=== PATIENT | male | born 1970 | race Caucasian/White ===

== ENCOUNTER 2018-10-02 06:18 | Emergency (ER) | payer SELFPAY ==
--- OUTSIDE RECORDS SUMMARY | 2018-10-02 06:24 | XMS REPORT | Clinical Summary ---
:1970 Author Organization [facility] Address [address] [place] [address] Care Team Providers Name Role Phone Bc Carbajal MD Primary Care Provider Allergies No Known Allergies Medications Medication Sig Dispensed Refills Start Date End Date Status ibuprofen (ADVIL,MOTRIN) Take 1 tablet 15 tablet 0 09/13/2018 800 MG tablet (800 mg total) 9 by mouth every 8 (eight) hours as needed for mild pain or moderate pain for up to 5 days. cyclobenzaprine Take 1 tablet (5 12 tablet 0 09/13/2018 (FLEXERIL) 5 mg tablet mg total) by 9 mouth 3 (three) times a day as needed for muscle spasms for up to 7 days. methylPREDNISolone follow package 21 tablet 0 09/13/2018 (MEDROL DOSEPAK) 4 mg directions 9 tablet Active Problems Not on file Encounters Date Type Specialty Care Team Description 09/13/2018 Emergency Emergency Medicine Ray, Wily Irizarry, Lumbar radiculopathy PA (Primary Dx) Karol Bauer MD after 10/01/2017 Social History Tobacco Use Types Packs/Day Years Used Date Former Smoker Smokeless Tobacco: Never Used Comments: social Alcohol Use Drinks/Week oz/Week Comments Yes social Alcohol Habits Answer Date Recorded How often do you have a drink containing alcohol? Never 09/13/2018 How many drinks containing alcohol do you have on a typical Not asked day when you are drinking? How often do you have six or more drinks on one occasion? Not asked Sex Assigned at Date Recorded Not on file Job Start Date Occupation Industry Not on file Not on file Not on file Travel History Travel Start Travel End No recent travel history available. Last Filed Vital Signs Vital Sign Reading Time Taken Blood Pressure 128/91 09/13/2018 9:32 PM CDT Pulse 85 09/13/2018 9:32 PM CDT Temperature 36.7 C (98 F) 09/13/2018 9:59 PM CDT Respiratory Rate 16 09/13/2018 9:32 PM CDT Oxygen Saturation 97% 09/13/2018 9:32 PM CDT Inhaled Oxygen Concentration - - Weight - - Height - - Body Mass Index - - Plan of Treatment Health Maintenance Due Date Last Done Comments INFLUENZA VACCINE 01/03/2019 Procedures Procedure Name Priority Date/Time Associated Diagnosis Comments XR LUMBAR SPINE 2 STAT 09/13/2018 7:57 PM Results for this OR 3 VW CDT procedure are in the results section. after 10/01/2017 Results XR Lumbar Spine 2 Or 3 Vw (09/13/2018 7:57 PM CDT) Narrative Performed At EXAMINATION: XR LUMBAR SPINE 2 OR 3 VW [facility] CLINICAL HISTORY: Low back pain with radiculopathy to the right COMPARISON:None IMPRESSION: 2 views lumbar spine are interpreted. There are 5 lumbar type vertebrae. There is lumbar levoscoliosis with a Watt angle of 16 degrees. Mild rotation is present. Vertebral heights are preserved. No fracture or aggressive bone lesion is seen. Mild disc degenerative changes noted at L4-5. There is mild grade 1 anterolisthesis of L4 relative L5. [facility]-[id number] Procedure Note Interface, Radiology Results - 09/13/2018 8:14 PM CDT EXAMINATION: XR LUMBAR SPINE 2 OR 3 VW CLINICAL HISTORY: Low back pain with radiculopathy to the right COMPARISON: None IMPRESSION: 2 views lumbar spine are interpreted. There are 5 lumbar type vertebrae. There is lumbar levoscoliosis with a Watt angle of 16 degrees. Mild rotation is present. Vertebral heights are preserved. No fracture or aggressive bone lesion is seen. Mild disc degenerative changes noted at L4-5. There is mild grade 1 anterolisthesis of L4 relative L5. [facility]-[id number] Performing Organization Address City/State/Zipcode Phone Number [facility] [address] [place] [address] after 10/01/2017 Advance Directives Patient has advance care planning documents on file. For more information, please contact:Hayes [address] [place] [address]
--- OUTSIDE RECORDS SUMMARY | 2018-10-02 06:24 | XMS REPORT ---
:1970 Author Organization [facility] Address [address] [place] [address] Dr. Logan [address] [place] [id number] Care Team Providers Name Role Phone Unavailable Unavailable Unavailable Problems This patient has no known problems. Allergies, Adverse Reactions, Alerts This patient has no known allergies or adverse reactions. Medications This patient has no known medications.
[2018-10-02 07:01] LABS: Absolute Lymphocytes (CBC) 2.4 K/uL (0.7-4.9); Absolute Monocytes 0.8 K/uL (0.1-1.3); Absolute Neutrophil 6.5 K/uL (1.8-8.0); Basophils % 0.7 % (0-1.3); Eosinophils % 3.2 % (0-4.4); Hematocrit 51.7 % (39.6-49.0); Lymphocytes % 23.9 % (15.3-44.8); MPV 7.5 fL (7.6-11.3); Monocytes % 8.3 % (3.3-12.3); RBC Red Blood Cell Count 5.55 M/uL (4.33-5.43)
[2018-10-02] MEDS ORDERED: NA CHLORIDE 0.9% 1,000 ML ONE (07:09)
[2018-10-02 07:15] LABS: Albumin 3.8 g/dL (3.4-5.0); Bilirubin Direct 0.1 mg/dL (0-0.2); Bilirubin Total 0.8 mg/dL (0.2-1.0)
--- NOTE | 2018-10-02 08:12 | RAD REPORT ---
EXAM DESCRIPTION: CT - Chest Abdomen Pelvis W Cont - 10/02/2018 7:47 am CLINICAL HISTORY: Chest pain, abdominal pain, dysuria, history of back pain with right lower extremi ty radiculopathy COMPARISON: CT imaging March 2017 TECHNIQUE: Following dynamic enhancement using 100 milliliters nonionic IV contrast, axial imaging o f the chest, abdomen and pelvis was performed. Biphasic technique was utilized through the abdomen. Oral contrast was administered. All CT scans are performed using dose optimization technique as appropriate and may include automated exposure control or mA/KV adjustment according to patient size. FINDINGS: Lungs are clear of mass and infiltrate. Calcified granuloma in the right lung field. No pl eural effusion, pleural thickening or pneumothorax. No significant aortic or pulmonary arterial tree finding. Mediastinal and hilar regions show no mass or abnormal lymphadenopathy. No chest wall mass o r axillary lymphadenopathy. No pericardial thickening or effusion. Scoliosis of the spine is noted wi thout an acute thoracic bony finding. The liver, spleen and pancreas show no suspicious findings. Gallbladder is contracted. No biliary gamaliel e dilatation. Gallstones can be occult on CT imaging. Symmetric renal function is seen with no mass o r hydronephrosis. No adrenal abnormalities. Urinary bladder is contracted around a Garg catheter. No dilated bowel loops or focal bowel wall thickening. No acute GI findings seen. Appendix is normal. Advanced lower lumbar degenerative changes are present. No acute bony finding. Central canal detail i s inherently limited. No significant vascular findings. IMPRESSION: CT chest imaging shows no acute or suspicious finding. CT abdomen and pelvis imaging shows no acute or suspicious finding. Prominent lower lumbar degenerative changes are present. Central canal is inherently limited in asses sment on CT imaging.
--- NOTE | 2018-10-02 09:07 | RAD REPORT ---
EXAM DESCRIPTION: MRI - Lumbar Spine Wo Con - 10/02/2018 8:39 am CLINICAL HISTORY: Right lower extremity radiculopathy COMPARISON: CT imaging same date TECHNIQUE: Sagittal T1-weighted, T2-weighted and T2-STIR weighted sequences were obtained. Axial T1 -weighted and heavily T2-weighted sequenceswere obtained through the lumbar disc levels. FINDINGS: Lumbar bodies are normal in height. Alignment is normal except for mild anterior subluxati on of L4 relative to L5. This is secondary to facet degenerative change. No pars defects identified. Small hemangioma is present in the T12 body. There is active degenerative marrow edema in the midlin e and left-side L5 and S1 bodies abutting the L5-S1 disc space. No aggressive marrow edema or marrow replacing process. Conus is normal with no clumping or thickening of the cauda equina. T12-L1 level: No significant findings. L1-2 level: No significant findings. L2-3 level: Disc is desiccated with slight loss in disc height. Minimal disc bulge is present. No can al or foramen stenosis. Minimal facet degenerative change. L3-4 level: Disc is desiccated with a minimal loss in disc height. Minimal disc bulge in the right fo ramen without foraminal stenosis. No significant central canal finding. Prominent left foraminal disc bulge results in a mild foraminal stenosis. Perineural fat still surrounds the exiting nerve root. F acet degenerative change and ligamentous thickening are mild. L4-5 level: Disc is thinned and desiccated in addition to the L4 subluxation abnormality. There is a pseudo bulge of disc material across the central canal and into each exit foramen. Facet degenerative changes are present with minimal ligamentous thickening. Patient has very significant right foramina l stenosis with effacement of the perineural fat. No left foraminal stenosis. Central canal is 11 mm in the midline. L5-S1 level: Disc is thinned and desiccated with minimal disc bulge. Mild bilateral foraminal encroac hment changes are present with perineural fat still present. No central spinal stenosis. IMPRESSION: Severe right L4-5 foraminal stenosis from protruding disc material and L4 subluxation. T his is likely the level responsible for the patient's right lower extremity radiculopathy. Degenerative changes are present at the lower for disc levels as detailed. No other level of central spinal stenosis or significant foraminal encroachment. Canal is borderline stenotic at L4-5. Active marrow degenerative change in the midline and left-side L5 and S1 bodies abutting the disc anish bates.
[2018-10-02] MEDS ORDERED: DEXAMETHASONE 10 MG/ML VIAL ONE (09:14)
[2018-10-02 09:19] LABS: Urine Bacteria NONE SEEN /HPF (NONE SEEN); Urine Culture Reflex Order NOT NEEDED; Urine RBC <5 /HPF (NONE SEEN)
[2018-10-02 09:19] LABS: Urine Blood NEGATIVE (NEG); Urine Glucose NEGATIVE (NEG); Urine Protein NEGATIVE (NEG); Urine Specific Gravity 1.015 (1.005-1.030); Urine pH 8.5 (5.0-7.0)
--- NOTE | 2018-10-02 09:26 | EDPHYS ---
Physician Documentation [facility] Name: Mike Leger Age: 47 yrs Sex: Male : 1970 Arrival Date: 10/02/2018 Time: 06:23 Bed 17 Private MD: ED Physician Sunday Romero HPI: 10/02 07:00 This 47 yrs old Male presents to ER via Wheelchair with complaints of snw Constipation, Urinary Retention, Severe pain, Leg Pain. 07:00 Onset: The symptoms/episode began/occurred gradually, 2 week(s) ago, and became snw persistent. Associated signs and symptoms: Pertinent positives: urinary retention, constipation. Modifying factors: The patient symptoms are alleviated by nothing. The patient has experienced similar episodes in the past, multiple times, chronically. pt has been Doctor and hospital hopping x 2 weeks, + pain med registry, drug seeking behavior, on [place] daily x several years. 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 - Social history:: Smoking status: Patient uses tobacco products, 2 packs a week. - Ebola Screening: : No symptoms or risks identified at this time. ROS: 06:58 Eyes: Negative for injury, pain, redness, and discharge, ENT: Negative for injury, snw pain, and discharge, Neck: Negative for injury, pain, and swelling, Cardiovascular: Negative for chest pain, palpitations, and edema, Respiratory: Negative for shortness of breath, cough, wheezing, and pleuritic chest pain, Abdomen/GI: Negative for abdominal pain, nausea, vomiting, diarrhea, and constipation. 06:58 Skin: Negative for injury, rash, and discoloration. 06:58 Abdomen/GI: Negative for abdominal pain, nausea, vomiting, diarrhea, positive for constipation, Back: Negative for injury and pain. 06:58 Constitutional: Positive for body aches, malaise, poor PO intake. 06:58 Back: Positive for decreased range of motion, pain at rest, pain with movement, of the lumbar area, sacrum, left low back and right low back. 06:58 : Positive for urinary symptoms, difficulty urinating. 06:58 MS/extremity: Positive for decreased range of motion, pain. 06:58 Neuro: Positive for weakness. Exam: 06:47 Head/Face: Normocephalic, atraumatic. Eyes: Pupils equal round and reactive to light, snw extra-ocular motions intact. Lids and lashes normal. Conjunctiva and sclera are non-icteric and not injected. Cornea within normal limits. Periorbital areas with no swelling, redness, or edema. 06:47 Neck: Trachea midline, no thyromegaly or masses palpated, and no cervical lymphadenopathy. Supple, full range of motion without nuchal rigidity, or vertebral point tenderness. No Meningismus. Chest/axilla: Normal chest wall appearance and motion. Nontender with no deformity. No lesions are appreciated. Cardiovascular: Regular rate and rhythm with a normal S1 and S2. No gallops, murmurs, or rubs. Normal PMI, no JVD. No pulse deficits. Respiratory: Lungs have equal breath sounds bilaterally, clear to auscultation and percussion. No rales, rhonchi or wheezes noted. No increased work of breathing, no retractions or nasal flaring. Abdomen/GI: Soft, non-tender, with normal bowel sounds. No distension or tympany. No guarding or rebound. No evidence of tenderness throughout. Back: No spinal tenderness. No costovertebral tenderness. Full range of motion. 06:47 Constitutional: The patient appears alert, anxious, restless, uncomfortable, unkempt. 06:47 ENT: Mouth: Oral mucosa: dry, Voice: is normal. 06:47 Skin: Appearance: Temperature: normal temperature, Moisture: dry. 06:47 Neuro: Orientation: is normal, Mentation: is normal, Motor: moving all extremities, histrionic, Sensation: no obvious gross deficits, seizure activity, is not displayed by the patient. 06:47 Psych: Behavior/mood is inappropriate for age, histrionic. Vital Signs: 06:30 BP 127 / 83; Pulse 84; Resp 20 S; Temp 98.1(O); Pulse Ox 100% on R/A; Weight 83.91 kg cc3 (R); Height 5 ft. 10 in. (177.80 cm) (R); Pain 8/10; 07:30 BP 122 / 79; Pulse 81; Resp 16; Pulse Ox 100% ; bp 09:00 BP 147 / 67; Pulse 77; Resp 16; Pulse Ox 100% ; bp 06:30 Body Mass Index 26.54 (83.91 kg, 177.80 cm) cc3 MDM: 06:36 Patient medically screened. snw 08:00 Data reviewed: vital signs, nurses notes. Data interpreted: Pulse oximetry: on room air snw is 100 %. Interpretation: normal. Counseling: I had a detailed discussion with the patient and/or guardian regarding: the historical points, exam findings, and any diagnostic results supporting the discharge/admit diagnosis, lab results. 10/02 06:36 Order name: Urine Microscopic Only; Complete Time: 09:20 snw 10/02 06:36 Order name: Basic Metabolic Panel; Complete Time: 07:16 snw 10/02 09:20 Interpretation: GFR 70. snw 10/02 06:36 Order name: CT Chest, Abdomen, Pelvis - W/Contrast; Complete Time: 08:18 snw 10/02 06:36 Order name: CBC with Diff; Complete Time: 07:16 snw 10/02 06:36 Order name: Hepatic Function; Complete Time: 07:16 snw 10/02 09:11 Order name: Urine Dipstick--Ancillary (enter results); Complete Time: 09:20 bd 10/02 06:36 Order name: Bladder Scanner; Complete Time: 07:02 snw 10/02 06:36 Order name: Garg; Complete Time: 07:29 snw 10/02 06:36 Order name: MRI Lumbar Spine wo Con; Complete Time: 09:11 snw 10/02 06:36 Order name: IV Saline Lock; Complete Time: 07:00 snw 10/02 06:36 Order name: Labs collected and sent; Complete Time: 07:01 snw Administered Medications: 07:00 Drug: NS 0.9% 1000 ml Route: IV; Rate: 1 bolus; Site: right antecubital; cc3 08:30 Follow up: IV Status: Completed infusion; IV Intake: 1000ml bp 09:00 Drug: Decadron - Dexamethasone 10 mg Route: IVP; Site: right antecubital; bp 09:16 Follow up: Response: No adverse reaction bp Disposition: 10/02/18 09:19 Discharged to Home. Impression: Radiculopathy, lumbar region, Thoracic, thoracolumbar and lumbosacral intervertebral disc disorders with radiculopathy. - Condition is Stable. - Discharge Instructions: Back Pain, Adult, Lumbosacral Radiculopathy, Neuropathic Pain, Radicular Pain. - Prescriptions for Prednisone 20 mg Oral Tablet - take 2 tablet by ORAL route once daily for 5 days; 10 tablet. Pepcid 20 mg Oral Tablet - take 1 tablet by ORAL route once daily; 20 tablet. - Medication Reconciliation Form, Thank You Letter, Antibiotic Education, Prescription Opioid Use form. - Follow up: Private Physician; When: 1 - 2 days; Reason: Recheck today's complaints, Continuance of care, Re-evaluation by your physician. Follow up: Mike Cristina MD; When: 1 week; Reason: Recheck today's complaints, Continuance of care. - Problem is chronic. - Symptoms are unchanged. Signatures: Dispatcher [employer] EDHI Susana Ruth, MILO-C TRAY LINE WORKER-Csnw Hari Parsons, MYCHAL RN bp Violet Palacios cc3 Corrections: (The following items were deleted from the chart) 09:51 09:19 10/02/2018 09:19 Discharged to Home. Impression: Radiculopathy, lumbar region; bp Thoracic, thoracolumbar and lumbosacral intervertebral disc disorders with radiculopathy. Condition is Stable. Forms are Medication Reconciliation Form, Thank You Letter, Antibiotic Education, Prescription Opioid Use. Follow up: Private Physician; When: 1 - 2 days; Reason: Recheck today's complaints, Continuance of care, Re-evaluation by your physician. Follow up: Mike Cristina; When: 1 week; Reason: Recheck today's complaints, Continuance of care. Problem is chronic. Symptoms are unchanged. snw
--- NOTE | 2018-10-02 09:26 | ER ---
Nurse's Notes [facility] Name: Mike Leger Age: 47 yrs Sex: Male : 1970 Arrival Date: 10/02/2018 Time: 06:23 Bed 17 Private MD: Diagnosis: Radiculopathy, lumbar region;Thoracic, thoracolumbar and lumbosacral intervertebral disc disorders with radiculopathy Presentation: 10/02 06:30 Presenting complaint: Patient states: "lower back pain radiating to right leg since 2-3 cc3 weeks; constipation since 2 days, difficulty passing urine and noticed to have blood in urine since 2 days". Transition of care: patient was not received from another setting of care. Onset of symptoms was October 02, 2018. Risk Assessment: Do you want to hurt yourself or someone else? Patient reports no desire to harm self or others. Initial Sepsis Screen: Does the patient meet any 2 criteria? No. Patient's initial sepsis screen is negative. Does the patient have a suspected source of infection? No. Patient's initial sepsis screen is negative. Care prior to arrival: None. 06:30 Method Of Arrival: Wheelchair cc3 06:30 Acuity: ELIECER 3 cc3 Triage Assessment: 06:30 General: Appears in no apparent distress. uncomfortable, Behavior is cooperative. Pain: cc3 Complains of pain in right low back and left low back and sacrum and lumbar area. EENT: No signs and/or symptoms were reported regarding the EENT system. Neuro: Level of Consciousness is awake, alert, obeys commands, Oriented to person, place, time, situation, Appropriate for age. Cardiovascular: Patient's skin is warm and dry. Respiratory: Airway is patent Respiratory effort is even, unlabored, Respiratory pattern is regular, symmetrical. GI: Abdomen is round. : Reports difficulty passing urine and blood in urine since 2 days. Derm: No signs and/or symptoms reported regarding the dermatologic system. Musculoskeletal: Circulation, motion, and sensation intact. Range of motion: intact in all extremities. 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 - Social history:: Smoking status: Patient uses tobacco products, 2 packs a week. - Ebola Screening: : No symptoms or risks identified at this time. Screenin:30 Abuse screen: Denies threats or abuse. Denies injuries from another. Nutritional cc3 screening: No deficits noted. Tuberculosis screening: No symptoms or risk factors identified. Fall Risk Ambulatory Aid- None/Bed Rest/Nurse Assist (0 pts). Gait- Normal/Bed Rest/Wheelchair (0 pts) Mental Status- Oriented to own ability (0 pts). Assessment: 07:00 General: Appears in no apparent distress. uncomfortable, Behavior is cooperative, bp appropriate for age, anxious, RECD REPORT FROM [facility]IO[facility]ORTA. Pain: Complains of pain in sacrum and lumbar area. Neuro: Level of Consciousness is awake, alert, obeys commands, Oriented to person, place, time, situation, Appropriate for age. Cardiovascular: No deficits noted. Respiratory: Airway is patent Respiratory effort is even, unlabored, Respiratory pattern is regular, symmetrical. GI: Bowel sounds present X 4 quads. Abdomen is tender to palpation X 4 quads. : Reports inability to void. EENT: No deficits noted. Derm: No deficits noted. Musculoskeletal: Circulation, motion, and sensation intact. Range of motion: intact in all extremities. 09:00 Reassessment: PT RETURNED FROM CT AND MRI. ALL CURRENT ORDERS COMPLETED, RESULTS bp PENDING. 09:49 Reassessment: PT D/C HOME AMBULATORY WITH FAMILY, DX WITH LUMBAR RADICULOPATHY. bp Vital Signs: 06:30 BP 127 / 83; Pulse 84; Resp 20 S; Temp 98.1(O); Pulse Ox 100% on R/A; Weight 83.91 kg cc3 (R); Height 5 ft. 10 in. (177.80 cm) (R); Pain 8/10; 07:30 BP 122 / 79; Pulse 81; Resp 16; Pulse Ox 100% ; bp 09:00 BP 147 / 67; Pulse 77; Resp 16; Pulse Ox 100% ; bp 06:30 Body Mass Index 26.54 (83.91 kg, 177.80 cm) cc3 ED Course: 06:23 Patient arrived in ED. es 06:26 Sus[facility]C [facility] snw 06:26 Sunday Romero MD is Attending Physician. snw 06:30 Arm band placed on right wrist. cc3 06:30 Patient has correct armband on for positive identification. Placed in gown. Bed in low cc3 position. Call light in reach. Side rails up X 1. Pulse ox on. NIBP on. 06:40 Bladder scan completed. 360 ml. lp1 06:45 Inserted saline lock: 20 gauge in right forearm, using aseptic technique. Blood lp1 collected. 06:47 Triage completed. cc3 07:00 Report given to MYCHAL Noriega. cc3 07:06 Hari Parsons RN is Primary Nurse. bp 07:31 Coud inserted, using sterile technique, 14 Fr. Returned clear yellow urine. To gravity bp drainage. Urine specimen collected. 07:42 CT completed. Patient tolerated procedure well. Patient moved to CT via stretcher. [id number] Patient moved back from CT. 07:47 CT Chest, Abdomen, Pelvis - W/Contrast In Process Unspecified. EDMS 08:11 Patient moved to MRI via stretcher. em2 08:17 MRI Lumbar Spine wo Con In Process Unspecified. EDMS 09:18 Mike Cristina MD is Referral Physician. snw 09:49 No provider procedures requiring assistance completed. Coud removed intact, balloon bp deflated. IV discontinued, intact, bleeding controlled, No redness/swelling at site. Pressure dressing applied. Administered Medications: 07:00 Drug: NS 0.9% 1000 ml Route: IV; Rate: 1 bolus; Site: right antecubital; cc3 08:30 Follow up: IV Status: Completed infusion; IV Intake: 1000ml bp 09:00 Drug: Decadron - Dexamethasone 10 mg Route: IVP; Site: right antecubital; bp 09:16 Follow up: Response: No adverse reaction bp Intake: 08:30 IV: 1000ml; Total: 1000ml. bp Outcome: 09:19 Discharge ordered by . snw 09:50 Discharged to home ambulatory, with family. bp 09:50 Condition: stable 09:50 Discharge instructions given to patient, Instructed on discharge instructions, follow up and referral plans. medication usage, Demonstrated understanding of instructions, follow-up care, medications, Prescriptions given X 2. 09:51 Patient left the ED. bp Signatures: Dispatcher [employer] EDIA Susana Ruth FNP-Lam LEAD TEACHER-Csnw Jacquelyn Jackson Laura, RN RN lp1 Robinson Hilliard em2 Hari Parsons, RN RN bp Violet Palacios cc3 Kalie Tinoco6
== END 2018-10-02 09:51 | disposition home or self-care (01) ==
LOC: ER 06:18
DX: M51.15 Intervertebral disc disorders with radiculopathy, thoracolumbar region (principal); M51.17 Intervertebral disc disorders with radiculopathy, lumbosacral region; M51.16 Intervertebral disc disorders with radiculopathy, lumbar region; F17.210 Nicotine dependence, cigarettes, uncomplicated
CPT/HCPCS: 36415; 71260; 72148; 74177; 80048; 80076; 81003; 81015; 85025; J1100; J7030; Q9967

== ENCOUNTER → 2023-08-02 | Emergency (ER) | payer OTHER, SELFPAY ==
--- NOTE | 2023-08-02 16:43 | RAD REPORT ---
EXAM DESCRIPTION: RAD - Knee Right 3 View - 08/02/2023 4:38 pm CLINICAL HISTORY: PAIN COMPARISON: No comparisons FINDINGS: Mild medial compartment space osteoarthritis. No fracture, dislocation or aggressive marro w pattern. Mild joint effusion.
--- NOTE | 2023-08-02 16:45 | EDPHYS ---
Physician Documentation [facility] Name: Mike Leger Age: 52 yrs Sex: Male : 1970 Arrival Date: 08/02/2023 Time: 15:39 Bed IW3 Private MD: ED Physician Oli Casey HPI: 08/02 16:19 This 52 yrs old Male presents to ER via Ambulatory with complaints of Knee Pain. kb 16:20 Pt is a 52 year old male who presents for right lateral knee pain that started 2 weeks kb ago. States the pain gets better with rest and worse with ambulation. Reports he does a lot of lifting and moving at work so he may have twisted wrong. Denies swelling, fever, . 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 - Social history:: Smoking status: Patient denies any tobacco usage or history of. ROS: 16:20 Constitutional: Negative for fever, chills, and weight loss, kb 16:20 MS/extremity: Positive for pain, of the right knee, 16:20 All other systems are negative, Exam: 16:20 Constitutional: This is a well developed, well nourished patient who is awake, alert, kb and in no acute distress. Head/Face: Normocephalic, atraumatic. ENT: Moist Mucous membranes Cardiovascular: Regular rate Respiratory: Respirations even and unlabored. No increased work of breathing. Talking in full sentences Abdomen/GI: Soft, non-tender. No distention Skin: Warm, dry with normal turgor. Normal color. Neuro: Awake and alert, GCS 15, oriented to person, place, time, and situation. Moves all extremities. Normal gait. 16:20 Musculoskeletal/extremity: Extremities: grossly normal except: noted in the right knee: pain, ROM: full active range of motion, limited active range of motion due to pain, Circulation is intact in all extremities. Sensation intact. Weight bearing: able to fully bear weight, Vital Signs: 15:56 BP 135 / 86; Pulse 72; Resp 16; Temp 97.6; Pulse Ox 98% on R/A; iw MDM: 15:44 Patient medically screened. kb 16:20 Differential diagnosis: dislocation, closed fracture, tendonitis, sprain. Data kb reviewed: vital signs, nurses notes. 16:44 Counseling: I had a detailed discussion with the patient and/or guardian regarding the kb historical points, exam findings, and any diagnostic results supporting the discharge/admit diagnosis, radiology results, the need for outpatient follow up, a orthopedic surgeon, to return to the emergency department if symptoms worsen or persist or if there are any questions or concerns that arise at home. 08/02 16:07 Order name: Knee Right 3 View XRAY; Complete Time: 16:44 kb Administered Medications: No medications were administered Disposition Summary: 08/02/23 16:44 Discharge Ordered Notes: Location: Home kb Condition: Stable kb Diagnosis - Pain in right knee kb Followup: kb - With: Emergency Department - When: As needed - Reason: Worsening of condition Followup: kb - With: Private Physician - When: 2 - 3 days - Reason: Recheck today's complaints, Continuance of care, Re-evaluation by your physician Discharge Instructions: - Discharge Summary Sheet kb - Arthritis, [id number] kb - Acute Knee Pain, Adult, [id number] kb Forms: - Medication Reconciliation Form kb - Thank You Letter kb - Antibiotic Education kb - Prescription Opioid Use kb - Patient Portal Instructions kb - Leadership Thank You Letter kb Prescriptions: - Diclofenac Sodium 75 mg Oral tablet, delayed release (enteric coated) - take 1 tablet ORAL route 2 times per day As needed; 30 tablet; Refills: 0, kb Product Selection Permitted Signatures: Dispatcher [employer] Briseyda Rae, MILO-Lam [employer] SUPPORT CONTROL OFFICER-Ethel Quintana, RN RN iw Mariah Simms RN RN ll1
--- NOTE | 2023-08-02 16:45 | ER ---
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 Coronavirus screen: At this time, the client does not indicate any symptoms associated with coronavirus-19. Ebola Screen: Patient negative for fever greater than or equal to 101.5 degrees Fahrenheit, and additional compatible Ebola Virus Disease symptoms Patient denies exposure to infectious person. Patient denies travel to an Ebola-affected area in the 21 days before illness onset. No symptoms or risks identified at this time. Initial Sepsis Screen: Does the patient meet any 2 criteria? No. Patient's initial sepsis screen is negative. Does the patient have a suspected source of infection? No. Patient's initial sepsis screen is negative. Risk Assessment: Do you want to hurt yourself or someone else? Patient reports no desire to harm self or others. Onset of symptoms was July 19, 2023. 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 - Social history:: Smoking status: Patient denies any tobacco usage or history of. Screenin:06 [facility] ED Fall Risk Assessment (Adult) Score/Fall Risk Level 0 - 2 = Low Risk. Abuse iw screen: Denies threats or abuse. Denies injuries from another. Nutritional screening: No deficits noted. Tuberculosis screening: No symptoms or risk factors identified. Assessment: 16:06 General: Appears in no apparent distress. Behavior is calm, cooperative. Pain: iw Complains of pain in right knee. Neuro: Level of Consciousness is awake, alert, obeys commands, Oriented to person, place, time, situation, Moves all extremities. Cardiovascular: Patient's skin is warm and dry. Respiratory: Respiratory effort is even, unlabored, Respiratory pattern is regular, symmetrical. Derm: Skin is intact, is healthy with good turgor. Musculoskeletal: Range of motion: limited in right knee. 17:08 Reassessment: No changes from previously documented assessment. Patient and/or family ll1 updated on plan of care and expected duration. Pain level reassessed. Patient is alert, oriented x 3, equal unlabored respirations, skin warm/dry/pink. Vital Signs: 15:56 BP 135 / 86; Pulse 72; Resp 16; Temp 97.6; Pulse Ox 98% on R/A; iw ED Course: 15:44 Patient arrived in ED. rg4 15:44 Briseyda Altamirano FNP-C is [facility]. kb 15:44 Oli Casey MD is Attending Physician. kb 15:58 Triage completed. iw 15:59 Arm band placed on. iw 16:40 Knee Right 3 View XRAY In Process Unspecified. EDMS 17:09 Patient has correct armband on for positive identification. Provided Education on: ll1 follow-up with PCP. 17:09 No provider procedures requiring assistance completed. Patient did not have IV access ll1 during this emergency room visit. Administered Medications: No medications were administered Medication: 16:06 VIS not applicable for this client. iw Outcome: 16:44 Discharge ordered by . kb 17:09 Discharged to home ambulatory, ll1 17:09 Condition: stable 17:09 Discharge instructions given to patient, Instructed on discharge instructions, follow up and referral plans. medication usage, Demonstrated understanding of instructions, follow-up care, medications, Prescriptions given X 1, 17:09 Patient left the ED. ll1 Signatures: Dispatcher [employer] EDMS Briseyda Altamirano FNP-C FNP-Ckb Williams, Irene, RN RN iw Garcia, Rubi rg4 Mariah Simms RN RN ll1
[2023-08-02 18:00] VITALS: BP 135/86; TEMP 97.6; O2SAT 98
== END ==
LOC: ER 15:39
DX: M25.561 Pain in right knee (principal)